=== PATIENT | female | born 1990 | race African-American/Black ===

== ENCOUNTER 2017-05-30 08:29 | Emergency (ER) | payer MEDICAID ==
[~2017-05-30] VITALS: Ht 162.6 cm; Wt 119.7 kg
[2017-05-30] MEDS ORDERED: IPRATROPIUM BROM 0.5 MG/2.5ML INH SOL NEB ONE (09:00)
[2017-05-30] MEDS ORDERED: ALBUTEROL SULF 2.5 MG/0.5ML(0.5%) NEB SOLN NEB ONE (09:00)
[2017-05-30] MEDS ORDERED: methylPREDNISolone SOD SUCC 125 MG/2 ML VL IM ONE (09:00)
[2017-05-30 09:01] VITALS: BP 120/83
[2017-05-30] MEDS ORDERED: cefTRIAXone SOD 1,000 MG VL IM ONE (10:15)
== END 2017-05-30 10:37 | disposition home or self-care (01) ==
LOC: ER 08:34
DX: J45.909 Unspecified asthma, uncomplicated (principal); J18.9 Pneumonia, unspecified organism
CPT/HCPCS: 71020; 94640; 96372; 99284; J0696; J2930

== ENCOUNTER 2024-08-21 18:01 | Emergency (ER) | payer MEDICAID ==
[~2024-08-21] VITALS: Ht 157.5 cm; Wt 141.0 kg
[~2024-08-21 18:01] MED LIST: CEPH-510 PO; CLIN-203 PO; GENT0.3S10 OP
[2024-08-21 19:27] LABS: Basophils # (auto) 0.1 10 ^3/uL (0-0.2); Eosinophils # (auto) 0.2 10 ^3/uL (0-0.8); Hemoglobin 12.4 g/dL (12.2-16.2); Lymphocytes # (auto) 3.1 10 ^3/uL (0.4-5.4); Lymphocytes % (auto) 28.1 % (10.0-50.0); Mean Corpuscular Volume 79.2 fL (80.0-100.0); Monocytes # (auto) 0.7 10 ^3/uL (0-1.3); White Blood Cell 11.1 10^3/uL (4.4-10.8)
[2024-08-21 19:29] LABS: Basophils % (auto) 0.7 % (0.0-2.0); Hematocrit 39.1 % (36.0-46.0); Mean Corpuscular Hgb Conc. 31.6 g/dL (32.0-36.0); Monocytes % (auto) 6.4 % (0.0-12.0); Neutrophils % (auto) 62.8 % (37.0-80.0); Platelet Count (auto) 465 10^3/uL (140-450); Red Blood Cells 4.94 10^6/uL (4.0-5.20); Red Cell Distribution Width 15.6 % (11.8-14.3)
[2024-08-21 19:32] LABS: Chloride 105 mmol/L (98-107); Potassium 3.8 mmol/L (3.5-5.1); Sodium 140 mmol/L (136-145)
[2024-08-21 19:33] LABS: Anion Gap 6 (5-15); Calcium 9.7 mg/dL (8.7-10.4); Carbon Dioxide 29 mmol/L (20-31)
[2024-08-21 19:38] VITALS: TEMP 98.1
[2024-08-21 19:38] LABS: BUN/Creatinine Ratio 17.6 (10.0-20.0); Blood Urea Nitrogen 12 mg/dL (9-23)
[2024-08-21 19:39] LABS: Glucose 110 mg/dL (74-106)
[2024-08-21] MEDS: ACETAMINOPHEN 325 MG TAB PO ONE (19:47)
[2024-08-21 19:48] VITALS: PULSE 70; RESP 18; O2SAT 100
[2024-08-21 21:58] LABS: Urine Bacteria None Seen /hpf (None Seen)
[2024-08-21 22:05] LABS: Urine Blood 3+ /uL (Negative); Urine Clarity Ex.Turbid (Clear); Urine Color Red (Yellow); Urine Mucus FEW (None Seen); Urine Protein, UAD 1+ (Negative); Urine Specific Gravity 1.036 (1.001-1.035); Urine Squamous Epithelial Cell FEW /hpf (<5); Urine Urobilinogen 2 mg/dL (Negative); Urine WBC 93 /HPF (0-5); Urine pH 5.5 (5.0-9.0)
[2024-08-21] MEDS ORDERED: BACDST PO (22:30)
[2024-08-21] MEDS ORDERED: ACET500T58 PO (22:30)
[2024-08-21] MEDS ORDERED: NITROFURANTOIN 100 mg CAP PO ONE (22:30)
--- NOTE | 2024-08-21 22:30 | ED.PDOC ---
History of Present Illness HPI Comments Patient is a pleasant but severely morbidly obese 34-year-old female who arrives to the ED today with complaints of elevated blood pressure concerns as well as headache that began this morning and has continued throughout the day. Patient states that she knows her blood pressure was elevated into the high 170s which in turn, resulted in a [id number] headache. At time of evaluation, patient did not look toxic and blood pressure was decreased from patient stated level. Patient denies any fever nausea or vomiting. Patient states she did have some gestational hypertension with her last delivery, but otherwise her blood pressure is unremarkable. Chief Complaint: Headache Time Seen by MD: 18:18 Primary Care Provider: NONE Reviewed Notes: Nurses Notes Allergies: Coded Allergies: NO KNOWN ALLERGIES (Unverified , 05/30/17) Home Meds Active Scripts Clindamycin HCl (Clindamycin Hydrochloride) 300 Mg Cap, 300 MG PO TID for 7 D ays, #21 CAP Prov:MELINDA JOEL MD 07/02/22 Cephalexin ( Keflex 500) 500 Mg Cap, 1 CAP PO TID for 7 Days, #21 CAP Prov:MELINDA JOEL MD 07/02/22 Gentamicin Sulfate (Gentamicin Sulfate) 0.3 % Latrice, 1 DROP OP Q4HR for 5 Days, #5 DROP Prov:MELINDA JOEL MD 07/02/22 Information Source: Patient Mode of Arrival: Ambulatory Severity: Moderate Timing: Hours Duration: Since onset Prehospital treatment: None Past Medical History PAST MEDICAL HISTORY: Asthma Surgical History: Denies all surgeries 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: Denies all SLUNK SKIN CURER Hx Family History Family History: Unknown Social History Smoker: Non-Smoker Alcohol: Denies ETOH Use Drugs: Denies Drug Use Lives In: Home Constitutional: denies: chills, diaphoresis, fatigue, fever, malaise, sweats, weakness, others EENTM: denies: blurred vision, double vision, ear bleeding, ear discharge, ear drainage, ear pain, ear ringing, eye pain, eye redness, hearing loss, mouth pain, mouth swelling, nasal discharge, nose bleeding, nose congestion, nose pain, photophobia, tearing, throat pain, throat swelling, voice changes, others Respiratory: denies: cough, hemoptysis, orthopnea, SOB at rest, shortness of breath, SOB with excertion, stridor, wheezing, others Cardiovascular: denies: chest pain, dizzy spells, diaphoresis, Dyspnea on exertion, edema, irregular heart beat, left arm pain, lightheadedness, palpitations, PND, syncope, others Gastrointestinal: denies: abdomen distended, abdominal pain, blood streaked bowels, constipated, diarrhea, dysphagia, difficulty swallowing, hematemesis, me mu, nausea, poor appetite, poor fluid intake, rectal bleeding, rectal pain, vomiting, others Genitourinary: denies: abnormal vagina bleeding, burning, dyspareunia, dysuria, flank pain, frequency, hematuria, incontinence, pain, , vagina discharge, urgency, others Neurological: reports: headache; denies: dizziness, fainting, left sided numbness, left sided weakness, numbness, paresthesia, pre-existing deficit, right sided numbness, right sided weakness, seizure, speech problems, tingling, tremors, weakness, others Musculoskeletal: denies: back pain, gout, joint pain, joint swelling, muscle pain, muscle stiffness, neck pain, others Integumetry: denies: bruises, change in color, change in hair/nails, dryness, laceration, lesions, lumps, rash, wounds, others Allergic/Immunocompromised: denies: Difficulty Healing, Frequent Infections, Hives, Itching, others Hematologic/Lymphatic: denies: anemia, blood clots, easy bleeding, easy bruising, swollen glands, others Endocrine: denies: excessive hunger, excessive sweating, excessive thirst, excessive urination, flushing, intolerance to cold, intolerance to heat, unexplained weight gain, unexplained weight loss, others Psychiatric: denies: anxiety, bipolar disorder, depression, hopeless, panic disorder, schizophrenia, sleepless, suicidal, others Physical Exam General Appearance: Moderate Distress (Distress due to headache and blood pressure concerns.), Obese HEENT: Head (Unremarkable cranial evaluation. No signs of trauma. No skull depressions or deformities.), Normal ENT Inspection, Pharynx Normal, TMs Normal Neck: Full Range of Motion, Non-Tender, Normal, Normal Inspection Respiratory: Chest Non-Tender, Lungs Clear, No Accessory Muscle Use, No Respiratory Distress, Normal Breath Sounds Cardiovascular: No Edema, No JVD, No Murmur, No Gallop, Normal Peripheral Pulses, Regular Rate/Rhythm Breast Exam: Deferred Gastrointestinal: No Organomegaly, Non Tender, No Pulsatile Mass, Normal Bowel Sounds, Soft Genitalia: Deferred Pelvic: Deferred Rectal: Deferred Extremities: No calf tenderness, Normal capillary refill, Normal inspection, Normal range of motion, Non-tender, No pedal edema Neurologic: Alert, pharmacist critical care II-XII nml as Tested, No Motor Deficits, Normal Affect, Normal Mood, No Sensory Deficits Cerebellar Function: Normal Reflexes: Normal Skin: Dry, Normal Color, Warm Lymphatic: No Adenopathy Was a procedure done? Was a procedure done?: No Differential Dx Considerations may include: Electrolyte abnormality, sepsis, acute coronary syndrome, hypertension, UTI X-Ray, Labs, Meds, VS Vital Signs Date Time Temp Pulse Resp B/P (MAP) Pulse Ox O2 Delivery O2 Flow Rate FiO2 08/21/24 19:48 70 18 100 Room Air* 0 21 21 08/21/24 19:38 98.1 79 18 154/97 (116) 100 98.1 08/21/24 18:23 98.5 98 20 166/93 (117) 96 08/21/24 18:23 Room Air 0 Lab Test 08/21/24 21:39 08/21/24 19:04 Range/Units Urine Color Red H Yellow Urine Clarity Ex.turbid Clear Urine pH 5.5 5.0-9.0 Urine Specific [place] 1.036 H 1.001-1.035 Urine Protein 1+ H Negative Urine Ketones Trace Negative Urine Blood 3+ H Negative /uL Urine Nitrite Negative Negative Urine Bilirubin Negative Negative Urine Urobilinogen 2 H Negative mg/dL Urine Leukocyte Esterase 1+ Negative /uL Urine RBC 8770 0 - 4 /hpf Urine Microscopic WBC 93 H 0-5 /HPF Urine Squamous Epithelial Cells Few <5 /hpf Urine Bacteria None seen None Seen /hpf Urine Mucus Few None Seen Urine Glucose Normal Normal mg/dL Urine Test Negative Negative White Blood Count 11.1 H 4.4-10.8 10^3/uL Red Blood Count 4.94 4.0-5.20 10^6/uL Hemoglobin 12.4 12.2-16.2 g/dL Hematocrit 39.1 36.0-46.0 % Mean Corpuscular Volume 79.2 L 80.0-100.0 fL Mean Corpuscular Hemoglobin 25.0 L 28.0-32.0 pg Mean Corpuscular Hemoglobin Concent 31.6 L 32.0-36.0 g/dL Red Cell Distribution Width 15.6 H 11.8-14.3 % Platelet Count 465 H 140-450 10^3/uL Mean Platelet Volume 7.5 6.9-10.8 fL Neutrophils (%) (Auto) 62.8 37.0-80.0 % Lymphocytes (%) (Auto) 28.1 10.0-50.0 % Monocytes (%) (Auto) 6.4 0.0-12.0 % Eosinophils (%) (Auto) 2.0 0.0-7.0 % Basophils (%) (Auto) 0.7 0.0-2.0 % Neutrophils # (Auto) 7.0 1.6-8.6 10 ^3/uL Lymphocytes # (Auto) 3.1 0.4-5.4 10 ^3/uL Monocytes # (Auto) 0.7 0-1.3 10 ^3/uL Eosinophils # (Auto) 0.2 0-0.8 10 ^3/uL Basophils # (Auto) 0.1 0-0.2 10 ^3/uL Nucleated Red Blood Cells 0.0 % Sodium Level 140 136-145 mmol/L Potassium Level 3.8 3.5-5.1 mmol/L Chloride Level 105 98-107 mmol/L Carbon Dioxide Level 29 20-31 mmol/L Anion Gap 6 5-15 Blood Urea Nitrogen 12 9-23 mg/dL Creatinine 0.68 0.550-1.02 mg/dL Glomerular Filtration Rate Calc 119 >90 mL/min BUN/Creatinine Ratio 17.6 10.0-20.0 Serum Glucose 110 H 74-106 mg/dL Calcium Level 9.7 8.7-10.4 mg/dL Troponin I High Sensitivity < 3 L </=34 ng/L Current Medications Medications (Trade) Dose Ordered Sig/Marimar Route Start Time Stop Time Status Last Admin Acetaminophen (Tylenol Tablet) 650 mg ONCE ONCE PO 08/21/24 18:45 08/21/24 18:46 DC 08/21/24 19:47 X-Ray, Labs, Meds, VS Comment All studies performed the ED were evaluated by me personally. Serum studies were unremarkable for any acute systemic process. Urinalysis confirmed a very large urinary tract infection. EKG revealed a sinus rhythm with a rate of 76, [place] interval 174 and QT interval of 394. Patient was given her 1st dose of antibiotics prior to discharge. Advised patient utilize medication as directed and to completion. If patient remains concerned about blood pressure issues, advised her to ascertain a blood pressure cuff and establish a blood pressure journal. Time of 1ST Reevaluation: 22:28 Reevaluation 1ST: Improved Consultation: PCP Patient Education/Counseling: Diagnosis, Treatment Family Education/Counseling: Diagnosis, Treatment Departure 1 Departure Time of Disposition: 22:29 Impression: Primary Impression: UTI (urinary tract infection) Disposition: HOME / SELF CARE / HOMELESS Condition: Stable Additional Instructions: Advised patient utilize antibiotics as directed until completion. If patient continues to be concerned about blood pressure issues, advised patient to ascertain a blood pressure cuff and establish a blood pressure journal to discuss with her primary care provider. e-Prescriptions Acetaminophen (Acetaminophen) 500 Mg Tab 500 MG PO Q4HP PRN, #20 TAB Prov: BRYANNA CLEVELAND PAC 08/21/24 Sulfamethoxazole W/Trimethopri (Bactrim Ds Tablet) 1 Tab Tb 1 TAB PO BID for 7 Days, #14 TAB Prov: BRYANNA CLEVELAND PAC 08/21/24 Discharged With: Self, Friend Critical Care Note Critical Care Time?: No Stability Stability form required: No Heart Score Heart Score: Heart Score Response (Comments) Value History Slightly Suspicious 0 EKG Normal 0 Age <45 0 Risk Factors No known risk factors 0 Troponin Normal limit 0 Total 0 BRYANNA CLEVELAND PAC Aug 21, 2024 22:30
[2024-08-21 22:43] VITALS: BP 137/100; PULSE 77; RESP 17; O2SAT 100
[2024-08-21] MEDS: SULFAMETHOX W/TRIMETH(800/160MG) DS TAB PO ONE (22:51)
[2024-08-21] MEDS: cefTRIAXone SOD 1,000 MG VL IM ONE (22:51)
--- NOTE | 2024-08-23 08:15 | ECG ---
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
== END 2024-08-21 23:17 | disposition home or self-care (01) ==
LOC: ER 18:01
DX: N39.0 Urinary tract infection, site not specified (principal); J45.909 Unspecified asthma, uncomplicated; E66.01 Morbid (severe) obesity due to excess calories; Z68.43 Body mass index [BMI] 50.0-59.9, adult; Z32.02 Encounter for pregnancy test, result negative; Z79.899 Other long term (current) drug therapy
CPT/HCPCS: 36415; 80048; 81001; 81025; 84484; 85025; 93005; 96372; 99285; J0696

== ENCOUNTER 2024-09-23 06:19 | Inpatient (IN) | payer MEDICAID ==
[~2024-09-23] VITALS: Ht 157.5 cm; Wt 144.6 kg
[2024-09-23] VITALS (9 sets, daily range): BP systolic 127–151; BP diastolic 79–99; PULSE 72–93; RESP 17–22; TEMP 97.5–98.7; O2SAT 95–100
[~2024-09-23 06:19] MED LIST changes: +ACET500T58 PO; +BACDST PO
--- NOTE | 2024-09-23 06:25 | ECG ---
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
--- NOTE | 2024-09-23 06:54 | ED.PDOC ---
HPI Comments 34 y/o morbidly obese F, BIBA with PMHX of asthma and bronchitis, presents to the ED for CC of chest pain. EMS states, patient is coming from home where she began to experiencing substernal non-radiating chest pain [id number]. Patient relays, that she was recently diagnosed with bronchitis on (09/21/24); believes symptoms may be in association. Patient comments on, being compliant with bronchitis Rx: Amoxicillin and Prednisone. Patient describes, pain to be tight in nature. Patient was gives given DuoNeb in route to the Ed for bilateral wheezes. Patient denies fever, headache, bilateral leg swelling, palpitations, nausea, or vomiting. No other associated symptoms, modifiers, recent injuries or sick contacts at this time. Chief Complaint: Chest Pain Time Seen by MD: 06:20 Primary Care Provider: NONE Reviewed Notes: Nurses Notes, Gear Cutter Notes, Medications, Allergies Allergies: Coded Allergies: NO KNOWN ALLERGIES (Unverified , 05/30/17) Home Meds Active Scripts Acetaminophen (Acetaminophen) 500 Mg Tab, 500 MG PO Q4HP PRN, #20 TAB Prov:BRYANNA CLEVELAND PAC 08/21/24 Sulfamethoxazole W/Trimethopri (Bactrim Ds Tablet) 1 Tab Tb, 1 TAB PO BID for 7 Days, #14 TAB Prov:BRYANNA CLEVELAND PAC 08/21/24 Clindamycin HCl (Clindamycin Hydrochloride) 300 Mg Cap, 300 MG PO TID for 7 Days, #21 CAP Prov:MELINDA JOEL MD 07/02/22 Cephalexin ( Keflex 500) 500 Mg Cap, 1 CAP PO TID for 7 Days, #21 CAP Prov:MELINDA JOEL MD 07/02/22 Gentamicin Sulfate (Gentamicin Sulfate) 0.3 % Latrice, 1 DROP OP Q4HR for 5 Days, #5 DROP Prov:MELINDA JOEL MD 07/02/22 Information Source: Patient, Emergency Med Personnel Mode of Arrival: EMS Severity: Moderate Timing: Hours Duration: Since onset Prehospital treatment: Breathing Tx Location: Substernal Radiation: No Radiation Quality: Tightness Onset: At Rest Cardiac Risk Factors: None PE Risk Factors: None History of: None Modifying Factors: Nothing Associated Signs and Symptoms: None Past Medical History PAST MEDICAL HISTORY: Asthma Surgical History: Denies all surgeries LAG SCREWER History: Denies all LAG SCREWER Hx Family History Family History: Unknown Social History Smoker: Non-Smoker Alcohol: Denies ETOH Use Drugs: Denies Drug Use Lives In: Home Constitutional: denies: chills, diaphoresis, fatigue, fever, malaise, sweats, weakness, others EENTM: denies: blurred vision, double vision, ear bleeding, ear discharge, ear drainage, ear pain, ear ringing, eye pain, eye redness, hearing loss, mouth pain, mouth swelling, nasal discharge, nose bleeding, nose congestion, nose pain, photophobia, tearing, throat pain, throat swelling, voice changes, others Respiratory: denies: cough, hemoptysis, orthopnea, SOB at rest, shortness of breath, SOB with excertion, stridor, wheezing, others Cardiovascular: reports: chest pain; denies: dizzy spells, diaphoresis, Dyspnea on exertion, edema, irregular heart beat, left arm pain, lightheadedness, palpitations, PND, syncope, others Gastrointestinal: denies: abdomen distended, abdominal pain, blood streaked bowels, constipated, diarrhea, dysphagia, difficulty swallowing, hematemesis, melena, nausea, poor appetite, poor fluid intake, rectal bleeding, rectal pain, vomiting, others Genitourinary: denies: abnormal vagina bleeding, burning, dyspareunia, dysuria, flank pain, frequency, hematuria, incontinence, pain, , vagina discharge, urgency, others Neurological: reports: headache; denies: dizziness, fainting, left sided numbness, left sided weakness, numbness, paresthesia, pre-existing deficit, right sided numbness, right sided weakness, seizure, speech problems, tingling, tremors, weakness, others Musculoskeletal: denies: back pain, gout, joint pain, joint swelling, muscle pain, muscle stiffness, neck pain, others Integumetry: denies: bruises, change in color, change in hair/nails, dryness, laceration, lesions, lumps, rash, wounds, others Allergic/Immunocompromised: denies: Difficulty Healing, Frequent Infections, Hives, Itching, others Hematologic/Lymphatic: denies: anemia, blood clots, easy bleeding, easy bruising, swollen glands, others Endocrine: denies: excessive hunger, excessive sweating, excessive thirst, excessive urination, flushing, intolerance to cold, intolerance to heat, unexplained weight gain, unexplained weight loss, others Psychiatric: denies: anxiety, bipolar disorder, depression, hopeless, panic disorder, schizophrenia, sleepless, suicidal, others All Other Systems: Reviewed and Negative Physical Exam General Appearance: Moderate Distress HEENT: Normal ENT Inspection, Pharynx Normal, TMs Normal Neck: Full Range of Motion, Non-Tender, Normal, Normal Inspection Respiratory: Wheezing Cardiovascular: No Edema, No JVD, No Murmur, No Gallop, Normal Peripheral Pulses, Regular Rate/Rhythm Breast Exam: Deferred Gastrointestinal: No Organomegaly, Non Tender, No Pulsatile Mass, Normal Bowel Sounds, Soft Genitalia: Deferred Pelvic: Deferred Rectal: Deferred Extremities: No calf tenderness, Normal capillary refill, Normal inspection, Normal range of motion, Non-tender, No pedal edema Musculoskeletal : Apperance: Normal Neurologic: Alert, order runner II-XII nml as Tested, No Motor Deficits, Normal Affect, Normal Mood, No Sensory Deficits Cerebellar Function: NOT DONE Reflexes: NOT DONE Skin: Dry, Normal Color, Warm Peripheral Pulses: 3+ Radial (R), 3+ Radial (L) Lymphatic: No Adenopathy Was a procedure done? Was a procedure done?: No CP Differential Dx Differential Diagnosis: A-fib, A-Flutter, Angina, Anxiety / Panic Attack, Atrial Dysrhythmia, Electrolyte Disorder Differential Diagnosis: Chest Wall Pain, Costochondritis, Pneumonia X-Ray, Labs, Meds, VS Vital Signs Date Time Temp Pulse Resp B/P (MAP) Pulse Ox O2 Delivery O2 Flow Rate FiO2 09/23/24 07:30 85 18 98 Room Air* 0 21 09/23/24 07:30 97.8 82 18 131/78 (95) 99 97.8 09/23/24 07:21 22 93 Room Air* 0 21 09/23/24 06:22 97.6 73 18 162/107 (125) 94 97.6 09/23/24 06:19 75 Lab Test 09/23/24 07:30 Range/Units Troponin I High Sensitivity 3 L </=34 ng/L Current Medications Medications (Trade) Dose Ordered Sig/Marimar Route Start Time Stop Time Status Last Admin Albuterol (Ventolin Medneb) 5 mg ONCE ONCE NEB 09/23/24 07:00 09/23/24 07:01 DC 09/23/24 07:20 Ipratropium [place] (Atrovent Medneb) 0.5 mg ONCE ONCE NEB 09/23/24 07:00 09/23/24 07:01 DC 09/23/24 07:[address] [address] Ph: [phone] DIAGNOSTIC IMAGING Diagnostic Imaging Report : [id number] Signed PATIENT: TREVON GUO ACCT: [id number] UNIT: [id number] : 1990 LOC: ER ROOM / BED: / AGE / SEX: 34 / F ADM STATUS: REG ER SERVICE 4 ORDERING PHYSICIAN: MELINDA JOEL MD PROCEDURE(s): CXRP - CHEST PORTABLE REASON: sob ORDER NUMBER(s): [id number], ACCESSION NUMBER(s): [id number] INDICATION: sob TECHNIQUE: Frontal view of the chest. COMPARISON: None FINDINGS: . Cardiomegaly. There is no evidence of pleural disease. The lungs are clear. The bony structures of the chest are intact without fracture. IMPRESSION: 1. Cardiomegaly with CHF. ATED BY: LEO GOLDEN MD DICTATED DATE/TIME: 09/23/24741 SIGNED BY: LEO GOLDEN MD SIGNED DATE/TIME: 09/23/24741 CC: Patient alert. Complaining of chest pain shortness a breath. Has been taking antibiotics for bronchitis. Blood pressure slightly elevated. She is obese. Continues to have chest pain. Was given aspirin. Was given morphine. Was given nitro. Explained to the patient. Continue cardiac monitoring. Time of 1ST Reevaluation: 06:50 Reevaluation 1ST: Unchanged Patient Education/Counseling: Diagnosis, Treatment Family Education/Counseling: No Family Present Departure 1 Departure Time of Disposition: 06:59 Impression: Primary Impression: Chest pain of unknown etiology Additional Impressions: Asthma exacerbation Qualified Codes: J45.41 - Moderate persistent asthma with (acute) exacerbation HTN (hypertension) Qualified Codes: I10 - Essential (primary) hypertension Disposition: ADMITTED INPATIENT Admit to: Med Surg Condition: Guarded Critical Care Note Critical Care Time?: Yes (45 min-critical care time only) Critical care comment: Started steroid monitor oxygen saturation Stability Stability form required: No Heart Score Heart Score: Heart Score Response (Comments) Value History Slightly Suspicious 0 EKG Normal 0 Age <45 0 Risk Factors 1 or 2 risk factors 1 Troponin Normal limit 0 Total 1 I personally scribed for MELINDA JOEL MD ([email or web address]) on 09/23/24 at 06:54. Electronically submitted by Belen Story ([email or web address]). I personally scribed for MELINDA JOEL MD ([email or web address]) on 09/23/24 at 08:13. Electronically submitted by Belen Story ([email or web address]). MELINDA JOEL MD Sep 23, 2024 06:54
[2024-09-23] MEDS: methylPREDNISolone SOD SUCC 125 MG/2 ML VL IV ONE (07:00)
[2024-09-23] MEDS: ALBUTEROL SULF 2.5 MG/0.5ML(0.5%) NEB SOLN NEB ONE (07:20)
[2024-09-23] MEDS: IPRATROPIUM BROM 0.5 MG/2.5ML INH SOL NEB ONE (07:20)
--- NOTE | 2024-09-23 07:45 | DVH ---
INDICATION: sob TECHNIQUE: Frontal view of the chest. COMPARISON: None FINDINGS: . Cardiomegaly. There is no evidence of pleural disease. The lungs are clear. The bony structures of the chest are intact without fracture. IMPRESSION: 1. Cardiomegaly with CHF.
[2024-09-23] MEDS ORDERED: MORPHINE SULFATE INJ 2 MG/ml SYRG IV PRN ×2 (09:15)
[2024-09-23] MEDS ORDERED: ALBUTEROL SULF 2.5 MG/0.5ML(0.5%) NEB SOLN NEB PRN (09:15)
[2024-09-23] MEDS ORDERED: NITROGLYCERIN 0.4 MG SL TAB SL PRN (09:15)
[2024-09-23] MEDS ORDERED: IPRATROPIUM BROM 0.5 MG/2.5ML INH SOL NEB PRN (09:15)
[2024-09-23] MEDS ORDERED: ONDANSETRON HCL 4 MG/2 ML VIAL IV PRN (09:15)
[2024-09-23 09:29] LABS: Basophils # (auto) 0.1 10 ^3/uL (0-0.2); Eosinophils # (auto) 0.1 10 ^3/uL (0-0.8); Hemoglobin 12.3 g/dL (12.2-16.2); Mean Corpuscular Volume 79.7 fL (80.0-100.0)
[2024-09-23 09:32] LABS: Basophils % (auto) 0.4 % (0.0-2.0); Eosinophils % (auto) 0.7 % (0.0-7.0); Hematocrit 38.5 % (36.0-46.0); Lymphocytes # (auto) 5.3 10 ^3/uL (0.4-5.4); Lymphocytes % (auto) 38.7 % (10.0-50.0); Mean Corpuscular Hemoglobin 25.5 pg (28.0-32.0); Monocytes # (auto) 0.9 10 ^3/uL (0-1.3); Monocytes % (auto) 6.5 % (0.0-12.0); Neutrophils # (auto) 7.3 10 ^3/uL (1.6-8.6); Neutrophils % (auto) 53.7 % (37.0-80.0); Nucleated Red Blood Cells % 0.3 %; Platelet Count (auto) 478 10^3/uL (140-450); Red Blood Cells 4.83 10^6/uL (4.0-5.20); Red Cell Distribution Width 15.6 % (11.8-14.3); White Blood Cell 13.6 10^3/uL (4.4-10.8)
[2024-09-23 09:40] LABS: Alanine Aminotransferase 18 U/L (7-40); Albumin 4.4 g/dL (3.2-4.8); Alkaline Phosphatase 88 U/L (46-116); Anion Gap 7 (5-15); BUN/Creatinine Ratio 18.1 (10.0-20.0); Blood Urea Nitrogen 15 mg/dL (9-23); Calcium 9.4 mg/dL (8.7-10.4); Carbon Dioxide 25 mmol/L (20-31); Chloride 106 mmol/L (98-107); Magnesium 1.9 mg/dL (1.6-2.6); Potassium 3.9 mmol/L (3.5-5.1); Sodium 138 mmol/L (136-145); Total Protein 7.7 g/dL (5.7-8.2)
[2024-09-23 09:42] LABS: Aspartate Aminotransferase 9 U/L (13-40); Bilirubin, Total 0.3 mg/dL (0.2-1.0); Glucose 112 mg/dL (74-106)
[2024-09-23 10:03] LABS: LDL Cholesterol 90 mg/dL (< 100); Triglycerides 115 mg/dL (< 150)
[2024-09-23 10:05] LABS: Cholesterol 150 mg/dL (< 200); HDL Cholesterol 47 mg/dL (40-59)
--- NOTE | 2024-09-23 10:12 | DVHHP2 ---
History of Present Illness Reason for Visit: Chest pain History of Present Illness Leanne Mccoy is a 34-year-old female with past medical history of asthma, bronchitis, morbid obesity, and who presents to the ED for chest pain substernal nonradiating and tight intermittent nature x5 days. Patient reports that she was at the urgent care for an ear infection in which she was given a breathing treatment 2 steroid injections and amoxicillin to take. Patient states that they also did not x-ray and was diagnosed with bronchitis. Patient also reported that she had a headache at the urgent care. Patient states that she took some of the amoxicillin but unsure how many pills she has left. Patient also reports that she has been having productive yellow phlegm. Patient denies any abdominal pain, nausea, vomiting, fever, chills, lightheadedness, weakness, dizziness, nausea, vomiting, or diarrhea. Pulmonary: Asthma, Bronchitis Past Medical History Morbid obesity Past Surgical History: Family History: Other (Dad with lupus and mom with renal failure) Smoke: No ALCOHOL: occassional Drugs: None Lives: with Family Domestic Violence: Neg Review of Systems Constitutional: Yes: Other (Headache) Respiratory: Sputum Cardiovascular: Chest Pain Allergies: Coded Allergies: NO KNOWN ALLERGIES (Unverified , 05/30/17) Exam Vital Signs Vital Signs Date Time Temp Pulse Resp B/P (MAP) Pulse Ox O2 Delivery O2 Flow Rate FiO2 09/23/24 08:00 72 18 151/99 (116) 100 09/23/24 07:30 Room Air* 0 21 09/23/24 07:30 97.8 97.8 General Appearance: Alert, Oriented X3, Cooperative, No acute distress HEENT: Atraumatic, PERRLA, EOMI, Mucous membr. moist/pink Respiratory: Clear to auscultation, Normal air movement Cardiovascular: Regular rate, Normal S1, Normal S2, No murmurs Abdominal: Normal bowel sounds, Soft, No tenderness Extremities: No cyanosis, Normal pulses Skin: No significant lesion Neuro: Normal speech, Strength at 5/5 X4 ext, Normal tone, Sensation intact Psych/Mental Status: Mental status NL, Mood NL Labs/Xrays Labs Test 09/23/24 08:35 09/23/24 07:30 Range/Units Troponin I High Sensitivity 3 L </=34 ng/L White Blood Count 13.6 H 4.4-10.8 10^3/uL Red Blood Count 4.83 4.0-5.20 10^6/uL Hemoglobin 12.3 12.2-16.2 g/dL Hematocrit 38.5 36.0-46.0 % Mean Corpuscular Volume 79.7 L 80.0-100.0 fL Mean Corpuscular Hemoglobin 25.5 L 28.0-32.0 pg Mean Corpuscular Hemoglobin Concent 32.0 32.0-36.0 g/dL Red Cell Distribution Width 15.6 H 11.8-14.3 % Platelet Count 478 H 140-450 10^3/uL Mean Platelet Volume 8.4 6.9-10.8 fL Neutrophils (%) (Auto) 53.7 37.0-80.0 % Lymphocytes (%) (Auto) 38.7 10.0-50.0 % Monocytes (%) (Auto) 6.5 0.0-12.0 % Eosinophils (%) (Auto) 0.7 0.0-7.0 % Basophils (%) (Auto) 0.4 0.0-2.0 % Neutrophils # (Auto) 7.3 1.6-8.6 10 ^3/uL Lymphocytes # (Auto) 5.3 0.4-5.4 10 ^3/uL Monocytes # (Auto) 0.9 0-1.3 10 ^3/uL Eosinophils # (Auto) 0.1 0-0.8 10 ^3/uL Basophils # (Auto) 0.1 0-0.2 10 ^3/uL Nucleated Red Blood Cells 0.3 % Sodium Level 138 136-145 mmol/L Potassium Level 3.9 3.5-5.1 mmol/L Chloride Level 106 98-107 mmol/L Carbon Dioxide Level 25 20-31 mmol/L Anion Gap 7 5-15 Blood Urea Nitrogen 15 9-23 mg/dL Creatinine 0.83 0.550-1.02 mg/dL Glomerular Filtration Rate Calc 96 >90 mL/min BUN/Creatinine Ratio 18.1 10.0-20.0 Serum Glucose 112 H 74-106 mg/dL Calcium Level 9.4 8.7-10.4 mg/dL Phosphorus Level 3.0 2.4-5.1 mg/dL Magnesium Level 1.9 1.6-2.6 mg/dL Total Bilirubin 0.3 0.2-1.0 mg/dL Aspartate Amino Transferase (AST) 9 L 13-40 U/L Alanine Aminotransferase (ALT) 18 7-40 U/L Alkaline Phosphatase 88 46-116 U/L Total Protein 7.7 5.7-8.2 g/dL Albumin 4.4 3.2-4.8 g/dL INDICATION: sob TECHNIQUE: Frontal view of the chest. COMPARISON: None FINDINGS: . Cardiomegaly. There is no evidence of pleural disease. The lungs are clear. The bony structures of the chest are intact without fracture. IMPRESSION: 1. Cardiomegaly with CHF. Assessment/Plan Assessment/Plan Assessment Chest pain Leukocytosis probable pneumonia Bronchitis Acute asthma exacerbation Acute respiratory failure Morbid obesity Cardiomegaly ? 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 Procedure Category Date Status Time B-Type Natriuretic LAB 09/23/24 In Process Peptide 09:11 Admit ADMIT 09/23/24 Verified 09:12 Allergies BETO 09/23/24 Verified 09:12 Code Status CODE 09/23/24 Verified 09:12 Hydrocodone-Acet PHA 09/23/24 Verified 5/325mg Tab ([place] 09:15 Ondansetron Hcl PHA 09/23/24 Verified (Zofran) 09:15 Complete Blood Count LAB 09/24/24 Verified 04:00 Comprehensive LAB 09/24/24 Verified Metabolic Panel 04:00 Cardiac DIET 09/23/24 Verified Diet-2gna,Lofat,Lochol Breakfast Echo 2d Mode Cardiac US 09/23/24 Verified DOP 09:12 Acetaminophen Tablet PHA 09/23/24 Verified (Tylenol Tablet) 09:15 Morphine Sulfate PHA 09/23/24 Verified Injection 09:15 Sequential BETO 09/23/24 Verified Compression Device Nitroglycerin PHA 09/23/24 Verified Sublingual (Ntrostat 09:15 Morphine Sulfate PHA 09/23/24 Verified Injection 09:15 Stat Ekg For Chest BETO 09/23/24 Verified Pain 09:12 Notify Md Of Changes [facility] 09/23/24 Verified From Base 09:12 Physician Compensation Analyst For [facility] 09/23/24 Verified 24 Hours 09:[address] [facility] 09/23/24 Verified Protocol 09:12 Rhythm Strips Once [facility] 09/23/24 Verified Every Shift 09:12 Oxygen By Nasal RT 09/23/24 Verified Cannula 09:12 Date of Service: Sep 23, 2024 Billing Provider: BARBIE PATEL Common Visit Codes: [id number] INP/OBS CARE (HIGH) BARBIE PATEL Sep 23, 2024 10:12
[2024-09-23] MEDS: cefTRIAXone 1GM/50ML D5W 50 ML IV ONE (10:33)
[2024-09-23 10:51] LABS: COVID19 ANTIGEN SOFIA FIA NEGATIVE (NEGATIVE); Rapid Influenza A Negative (Negative); Rapid Influenza B Negative (Negative)
[2024-09-23] MEDS: IPRATROPIUM BROM 0.5 MG/2.5ML INH SOL NEB SCH (11:37)
[2024-09-23] MEDS: ALBUTEROL SULF 2.5 MG/0.5ML(0.5%) NEB SOLN NEB SCH (11:37)
[2024-09-23] MEDS ORDERED: FLUT50SP NAS (14:37)
[2024-09-23] MEDS: HYDROcodone-ACET 5/325MG TAB PO PRN (14:44)
[2024-09-23] MEDS: ACETAMINOPHEN 325 MG TAB PO PRN (16:32)
--- NOTE | 2024-09-23 18:11 | DVHINCON2 ---
Date Seen: Sep 23, 2024 Referring Physician MARYAN Abrams Reason for Consultation New onset CHF History of Present Illness This is a pleasant 34-year-old female who presented to the emergency room via EMS with a chief complaint of chest pain. She received a breathing treatment en route to the hospital. Describes the chest pain as substernal, nonradiating, tightness like, associated with a cough with yellow sputum/LOPEZ, and worse with movement/inspiration/cough. States she attended our urgent care clinic this past Friday where she received a steroid and breathing treatment and sent home on ABX and albuterol therapy. She returned again two days ago given worsening symptoms, this time she underwent a CXR where she was diagnosed with acute bronchitis. A 12 lead electrocardiogram revealed a normal sinus rhythm. Serial troponin levels are negative. Significant medical history includes bronchitis, pneumonia, asthma, childhood group, preeclampsia, gestational diabetes, and morbid obesity. Past Medical History Past medical history reviewed. No other significant than mentioned above. Past Surgical History Tonsillectomy Adenoidectomy Tympanostomy tubes Family History: Cardiac disorder G8 MOTHER FH: kidney failure G8 MOTHER FH: lung cancer G8 FATHER FH: lupus G8 FATHER FH: obesity G8 MOTHER Family History Family history reviewed. Significant for mother with PPM at 16 y.o. Social History Denies the use of illicit drugs or tobacco use. Admits to rarely alcohol use. Allergies: Coded Allergies: NO KNOWN ALLERGIES (Unverified , 05/30/17) Home Meds Active Scripts Acetaminophen (Acetaminophen) 500 Mg Tab, 500 MG PO Q4HP PRN, #20 TAB Prov:BRYANNA CLEVELAND PAC 08/21/24 Sulfamethoxazole W/Trimethopri (Bactrim Ds Tablet) 1 Tab Tb, 1 TAB PO BID for 7 Days, #14 TAB Prov:BRYANNA CLEVELAND PAC 08/21/24 Clindamycin HCl (Clindamycin Hydrochloride) 300 Mg Cap, 300 MG PO TID for 7 Days, #21 CAP Prov:MELINDA JOEL MD 07/02/22 Cephalexin ( Keflex 500) 500 Mg Cap, 1 CAP PO TID for 7 Days, #21 CAP Prov:MELINDA JOEL MD 07/02/22 Gentamicin Sulfate (Gentamicin Sulfate) 0.3 % Latrice, 1 DROP OP Q4HR for 5 Days, #5 DROP Prov:MELINDA JOEL MD 07/02/22 Reported Medications Fluticasone Propionate (Nasal) (Fluticasone Propionate) 50 Mcg/Act Spr, 1-2 LORETA DAILYPRN PRN 09/23/24 Home Meds Home medications reviewed. Current Medications Current Medications Medications (Trade) Dose Ordered Sig/[place]imar Route PRN Reason Start Time Stop Time Status Last Admin Acetaminophen/ Hydrocodone Bitart ([place] 5/325MG Tab) 1 tab Q4HP PRN PO MODERATE PAIN (4-6 PAIN SCALE) 09/23/24 09:15 09/23/24 14:44 Ondansetron HCl (Zofran) 4 mg Q4HP PRN IV NAUSEA / VOMITING 09/23/24 09:15 Acetaminophen (Tylenol Tablet) 650 mg Q6HP PRN PO PAIN SCALE 1-3 OR TEMP>100.4 09/23/24 09:15 09/23/24 16:32 Morphine Sulfate 2 mg Q4HPRN PRN IV SEVERE PAIN (7-10 PAIN SCALE) 09/23/24 09:15 Nitroglycerin (Ntrostat Sublingual) 0.4 mg Q5MINP PRN SL FOR CHEST PAIN 09/23/24 09:15 Morphine Sulfate 2 mg Q30M PRN IV FOR CHEST PAIN 09/23/24 09:15 Ceftriaxone Sodium 50 ml @ 100 mls/hr DAILY@09 IV 09/24/24 09:00 Albuterol (Ventolin Medneb) 2.5 mg Q6HWA NEB 09/23/24 12:00 09/23/24 11:37 Albuterol (Ventolin Medneb) 2.5 mg Q2HPRN PRN NEB SHORTNESS OF BREATH 09/23/24 09:15 Ipratropium [place] (Atrovent Medneb) 0.5 mg Q6HWA NEB 09/23/24 12:00 09/23/24 11:37 Ipratropium [place] (Atrovent Medneb) 0.5 mg Q2HPRN PRN NEB SHORTNESS OF BREATH 09/23/24 09:15 Review of Systems Constitutional: No symptom reported Ears, Nose, & Throat: No symptom reported Eyes: No symptom reported Neurological: LOPEZ Pulmonary/Respiratory: No symptom reported Cardiovascular: No symptom reported Gastrointestinal: No symptom reported Genitourinary: No symptom reported Musculoskeletal: Pleuritic chest pain Skin: No symptom reported Psychiatric: No symptom reported Endocrine: No symptom reported Hemotologic/Lymphatic: No symptom reported Vital Signs Vital Signs Date Time Temp Pulse Resp B/P (MAP) Pulse Ox O2 Delivery O2 Flow Rate FiO2 09/23/24 17:00 98.7 88 19 145/86 (105) 100 98.7 09/23/24 14:39 Room Air* 0 21 Physical Exam General Appearance: Cooperative. Well developed. Morbidly obese. Mild acute distress Head Exam: Normal inspection Neck Exam: Normal inspection. Non-tender. Normal alignment Pulmonary/Respiratory: Chest non-tender. Coarse bilateral breath sounds Cardiovascular/Chest: Regular rate and rhythm. S1, S2. NSR. No murmurs. No JVD. Peripheral Pulses: 2+ Radial (R). 2+ Radial (L). 2+ Pedal (R). 2+ Pedal (L) Abdominal Exam: Normal bowel sounds. Soft. Nontender. No hepatospenomegaly. No masses Ankle Exam: Negative ankle edema Lower extremities: Negative lower extremity edema Neuro/Mental Status: A&O x4. Coherent Thoughts/Psych: Normal thought pattern. Appropriate mood and affect. Good judgement and insight Appearance: Mild acute distress Skin Exam: Normal inspection. Normal color. Warm. Dry Labs/Diagnostic Data Labs Test 09/23/24 10:20 09/23/24 10:19 09/23/24 07:30 Range/Units Troponin I High Sensitivity < 3 L </=34 ng/L Influenza Type A Antigen Negative Negative Influenza Type B Antigen Negative Negative SARS-CoV-2 Antigen (Rapid) Negative NEGATIVE White Blood Count 13.6 H 4.4-10.8 10^3/uL Red Blood Count 4.83 4.0-5.20 10^6/uL Hemoglobin 12.3 12.2-16.2 g/dL Hematocrit 38.5 36.0-46.0 % Mean Corpuscular Volume 79.7 L 80.0-100.0 fL Mean Corpuscular Hemoglobin 25.5 L 28.0-32.0 pg Mean Corpuscular Hemoglobin Concent 32.0 32.0-36.0 g/dL Red Cell Distribution Width 15.6 H 11.8-14.3 % Platelet Count 478 H 140-450 10^3/uL Mean Platelet Volume 8.4 6.9-10.8 fL Neutrophils (%) (Auto) 53.7 37.0-80.0 % Lymphocytes (%) (Auto) 38.7 10.0-50.0 % Monocytes (%) (Auto) 6.5 0.0-12.0 % Eosinophils (%) (Auto) 0.7 0.0-7.0 % Basophils (%) (Auto) 0.4 0.0-2.0 % Neutrophils # (Auto) 7.3 1.6-8.6 10 ^3/uL Lymphocytes # (Auto) 5.3 0.4-5.4 10 ^3/uL Monocytes # (Auto) 0.9 0-1.3 10 ^3/uL Eosinophils # (Auto) 0.1 0-0.8 10 ^3/uL Basophils # (Auto) 0.1 0-0.2 10 ^3/uL Nucleated Red Blood Cells 0.3 % Sodium Level 138 136-145 mmol/L Potassium Level 3.9 3.5-5.1 mmol/L Chloride Level 106 98-107 mmol/L Carbon Dioxide Level 25 20-31 mmol/L Anion Gap 7 5-15 Blood Urea Nitrogen 15 9-23 mg/dL Creatinine 0.83 0.550-1.02 mg/dL Glomerular Filtration Rate Calc 96 >90 mL/min BUN/Creatinine Ratio 18.1 10.0-20.0 Serum Glucose 112 H 74-106 mg/dL Calcium Level 9.4 8.7-10.4 mg/dL Phosphorus Level 3.0 2.4-5.1 mg/dL Magnesium Level 1.9 1.6-2.6 mg/dL Total Bilirubin 0.3 0.2-1.0 mg/dL Aspartate Amino Transferase (AST) 9 L 13-40 U/L Alanine Aminotransferase (ALT) 18 7-40 U/L Alkaline Phosphatase 88 46-116 U/L B-Type Natriuretic Peptide 9.54 0-100 pg/mL Total Protein 7.7 5.7-8.2 g/dL Albumin 4.4 3.2-4.8 g/dL Triglycerides Level 115 < 150 mg/dL Cholesterol Level 150 < 200 mg/dL LDL Cholesterol 90 < 100 mg/dL HDL Cholesterol 47 40-59 mg/dL Thyroid Stimulating Hormone (TSH) 3.94 0.55-4.78 uIU/mL Assessment Acute bronchitis/PNA Noncardiac chest pain, pleuritic in nature Extensive hx of airway disease Rule out structural heart disease Morbid obesity Plan/Recommendation (Dr. Rivas) The patient presents with noncardiac/pleuritic chest pain secondary to acute bronchitis. We will continue further cardiac evaluation with a transthoracic echocardiogram to rule out structural heart disease. In the meantime, continue ABX therapy and breathing treatments per hospitalist. Doubt any cardiac etiologies to be addressed. In the setting of an unremarkable echocardiogram, there is no further cardiac work-up indicated at this time. Thank you for allowing us to participate in this patient's care. Please call if you have any questions or concerns. This medical document was created using an electronic medical record system with voice recognition software and computerized dictation system. Although this document has been carefully reviewed, there might still be some phonetic and typographical errors. Occasional wrong-word or ``sound-alike substitutions may have occurred due to the inherent limitations of voice recognition software. These areas are purely typographical due to imperfections of the software programs and do not reflect any compromise in the patient's medical care. Please read the chart carefully and recognize, using context, where these substitutions have occurred. Plan discussed with: Patient, Other NYHA Physical activity limitations: NA Date of Service: Sep 23, 2024 Billing Provider: TIERRA ALANIS Cardiology Common Codes: [id number] INP/OBS CARE (High) TIERRA ALANIS Sep 23, 2024 18:11
--- NOTE | 2024-09-23 18:11 | DVHSR ---
APPROVED REPORT EXAM: Two-dimensional and M-mode echocardiogram with Doppler and color Doppler. Blood Pressure: 151/99 mmHg INDICATION Chest Pain RISK FACTORS Obesity: Height: 5' 2", Weight: 315 DIMENSIONS LVDd4.5 (3.8-5.7cm)LA (2D)3.9 (1.9-4.0cm)Aortic Root2.7 (2.0-3.7cm) LVDs3.0 (2.5-4.0cm)LA (MM) (1.9-4.0cm)Aortic Cusp Exc1.6 (1.5-2.0cm) EF (%) 62.0 (55-70%)Rt. Atrium3.6 (1.9-4.0cm)Asc. Aorta cm IVSd1.1 (0.7-1.1cm)RV (D) (1.8-2.4cm) PWd1.1 (0.7-1.1cm) Mitral Valve MitralMitral Stenosis E wave1.20m/sMV Mean GR.mmHg A wave0.70m/sMV Peak GR.mmHg E/A ratio1.72D MVAcm2 Aortic Valve Aortic ValveAortic Stenosis V10.80m/Min Mean GR.7mmHg V21.70m/Min Peak GR.12mmHg LVOT Diameter2.0 (1.8-2.4cm)Doppler AVA1.48cm2 Pulmonic Valve V20.80m/s Conclusion Technically good study. Sinus rhythm. Normal chamber sizes. Valves are normal. EF of 55% with normal RV function. Unremarkable Doppler. No pericardial effusion masses or
[2024-09-23 18:16] LABS: Urine Bacteria None Seen /hpf (None Seen)
--- NOTE | 2024-09-23 18:34 | ECG ---
[facility] Test Date: 2024-09-23 Test Time: 07:21:32 Pat Name: TREVON GUO Department: ER Room: 0234 Gender: F Fern Picker: : 1990 Requested By: MELINDA JOEL Order Number: [id number] Reading MD: Isaias Rivas Measurements Intervals [place] Rate: 71 P: 44 ID: [id number] QRS: 20 QRSD: 100 T: 33 QT: 395 QTc: 430 Interpretive Statements Sinus rhythm Electronically Signed On 09-25-2024 17:32:42 PDT by Isaias Rivas Please click the below link to view image of tracing.
--- NOTE | 2024-09-23 18:34 | ECG ---
[facility] Test Date: 2024-09-23 Test Time: 12:34:10 Pat Name: TREVON GUO Department: ER Room: 0234 Gender: F Button Bradder: : 1990 Requested By: MELINDA JOEL Order Number: [id number] Reading MD: Isaias Rivas Measurements Intervals [place] Rate: 84 P: 37 HI: 158 QRS: 22 QRSD: 90 T: 28 QT: 379 QTc: 449 Interpretive Statements Sinus rhythm Electronically Signed On 09-25-2024 17:34:23 PDT by Isaias Rivas Please click the below link to view image of tracing.
[2024-09-23 18:42] LABS: Cannabinoid Screen, Urine Neg (NEGATIVE); Opiate Scree,Urine Neg (NEGATIVE)
[2024-09-23 19:05] LABS: Urine Blood Negative /uL (Negative); Urine Budding Yeast OCCASIONAL /hpf (None Seen); Urine Clarity Clear (Clear); Urine Color Light-Yellow (Yellow); Urine Protein, UAD Negative (Negative); Urine Specific Gravity 1.018 (1.001-1.035); Urine Squamous Epithelial Cell FEW /hpf (<5); Urine Urobilinogen Normal (Negative); Urine WBC < 1 /HPF (0-5)
[2024-09-23 19:08] LABS: Amphetamine Screen, Urine Neg (NEGATIVE); Barbiturate Scree,Urine Neg (NEGATIVE); Benzodiazephine Screen, Urine Neg (NEGATIVE); Cocaine Screen, Urine Neg (NEGATIVE); Phencyclidine Screen, Urine Neg (NEGATIVE)
[2024-09-24] VITALS (16 sets, daily range): BP systolic 112–129; BP diastolic 63–84; PULSE 71–98; RESP 17–20; TEMP 97.6–98.5; O2SAT 96–100
[2024-09-24 05:16] LABS: Basophils # (auto) 0.1 10 ^3/uL (0-0.2); Eosinophils # (auto) 0 10 ^3/uL (0-0.8)
[2024-09-24 05:19] LABS: Basophils % (auto) 0.3 % (0.0-2.0); Hematocrit 36.3 % (36.0-46.0); Lymphocytes # (auto) 2.4 10 ^3/uL (0.4-5.4); Lymphocytes % (auto) 14.6 % (10.0-50.0); Mean Corpuscular Hemoglobin 26.3 pg (28.0-32.0); Mean Corpuscular Hgb Conc. 33.1 g/dL (32.0-36.0); Mean Corpuscular Volume 79.4 fL (80.0-100.0); Monocytes # (auto) 0.9 10 ^3/uL (0-1.3); Monocytes % (auto) 5.5 % (0.0-12.0); Neutrophils % (auto) 79.6 % (37.0-80.0); Platelet Count (auto) 523 10^3/uL (140-450); Red Blood Cells 4.57 10^6/uL (4.0-5.20); Red Cell Distribution Width 15.8 % (11.8-14.3); White Blood Cell 16.4 10^3/uL (4.4-10.8)
[2024-09-24 05:35] LABS: Alanine Aminotransferase 15 U/L (7-40); Alkaline Phosphatase 87 U/L (46-116); Anion Gap 7 (5-15); BUN/Creatinine Ratio 17.8 (10.0-20.0); Blood Urea Nitrogen 13 mg/dL (9-23); Calcium 9.3 mg/dL (8.7-10.4); Carbon Dioxide 25 mmol/L (20-31); Chloride 105 mmol/L (98-107); Potassium 4.9 mmol/L (3.5-5.1); Sodium 137 mmol/L (136-145); Total Protein 7.3 g/dL (5.7-8.2)
[2024-09-24 05:36] LABS: Albumin 4.2 g/dL (3.2-4.8); Aspartate Aminotransferase 17 U/L (13-40); Bilirubin, Total 0.2 mg/dL (0.2-1.0); Glucose 161 mg/dL (74-106)
[2024-09-24] MEDS: cefTRIAXone 1GM/50ML D5W 50 ML IV SCH (08:44)
[2024-09-24 10:40] LABS: INR 1.07 (0.9-1.15); Partial Thromboplastin Time 26.2 SEC (24.5-34.5); Prothrombin Time 11.3 sec (9.3-11.8)
--- NOTE | 2024-09-24 14:38 | DVHPNRES ---
Progress Note Date Seen: Sep 24, 2024 Resident Creating Document: NIRU BRASWELL RESIDENT Medical Necessity Reason Pt with a Central, PICC or Fol: No Subjective Review of Systems Leanne Mccoy is a 34-year-old female who presented to the emergency room via EMS with a chief complaint of chest pain. She received a breathing treatment en route to the hospital. Describes the chest pain as substernal, nonradiating, tightness like, associated with a cough with yellow sputum/LOPEZ, and worse with movement/inspiration/cough. States she attended our urgent care clinic this past Friday where she received a steroid and breathing treatment and sent home on ABX and albuterol therapy. She returned again two days ago given worsening symptoms. On my assessment patient denies fever, nausea, vomiting, difficulty breathing, sick contacts and other symptoms. PMH: bronchitis, pneumonia, asthma, preeclampsia, gestational diabetes, and morbid obesity. PSH: , tonsillectomy, appendectomy, tympanostomy tubes Family history: Lung cancer in father, mother has pacemaker and due to CKD, sister also from kidney failure. Personal history: Lives with family. Denies smoking alcohol and other drug Allergies: No known allergies Patient seen and examined at the bedside. Patient reported improvement in her symptoms since admission. Objective vital signs Vital Sign Date Time Temp Pulse Resp B/P (MAP) Pulse Ox O2 Delivery O2 Flow Rate FiO2 09/24/24 11:28 85 20 100 09/24/24 11:21 Room Air 0.0 09/24/24 11:21 21 09/24/24 09:00 97.9 126/84 (98) 97.9 Total Intake and Output 09/23/24 09/23/24 09/24/24 15:00 23:00 07:00 Intake Total 300 ml 800 ml Balance 300 ml 800 ml medications Current Medications Medications Dose Ordered Sig/[place] Route Start Time Stop Time Status Last Admin Dose Admin Acetaminophen/ Hydrocodone Bitart 1 tab Q4HP PRN PO 09/23/24 09:15 09/23/24 14:44 1 TAB Ondansetron HCl 4 mg Q4HP PRN IV 09/23/24 09:15 Acetaminophen 650 mg Q6HP PRN PO 09/23/24 09:15 09/23/24 16:32 650 MG Morphine Sulfate 2 mg Q4HPRN PRN IV 09/23/24 09:15 Nitroglycerin 0.4 mg Q5MINP PRN SL 09/23/24 09:15 Morphine Sulfate 2 mg Q30M PRN IV 09/23/24 09:15 Ceftriaxone Sodium 50 ml @ 100 mls/hr DAILY@09 IV 09/24/24 09:00 09/24/24 08:44 100 MLS/HR Albuterol 2.5 mg Q6HWA NEB 09/23/24 12:00 09/24/24 11:20 2.5 MG Albuterol 2.5 mg Q2HPRN PRN NEB 09/23/24 09:15 Ipratropium [place] 0.5 mg Q6HWA NEB 09/23/24 12:00 09/24/24 11:20 0.5 MG Ipratropium [place] 0.5 mg Q2HPRN PRN NEB 09/23/24 09:15 Examination Pt is lying on bed General Appearance: Alert, Oriented X3, Cooperative, Not in acute distress HEENT: Atraumatic, Mucous membranes moist/pink Respiratory: Clear to auscultation, Normal air movement, No added sounds Cardiovascular: Regular rate, Normal S1, Normal S2, No murmurs Abdominal: Active bowel sounds, Soft, no distention, no tenderness Extremities: No edema, Normal pulses, No tenderness/swelling Skin: No Significant rash, except past surgical scars Neuro: Normal speech, sensorimotor deficits none Psych/Mental Status: Mental status NL, Mood NL Nurse was there as sharperone during examination laboratory and microbiology Laboratory Tests 09/24/24 04:39 Test 09/24/24 04:39 Range/Units Serum Glucose 161 H 74-106 mg/dL Labs and/or images reviewed: Labs reviewed by me, Image(s) reviewed by me Problem List/Assessment/Plan Problem List/Assessment/Plan # ? Sepsis from PNA # Acute G+/- Bact PNA # Acute bronchitis # Noncardiac chest pain, pleuritic in nature # Chest pain ruled out ACS # ? asthma exacerbation - breathing treatments - Rocephin - respiratory cultures along with pancultures - CXR showed congestion - troponins x3 were negative and EKG showed normal sinus rhythm without ST changes # ruled out CHF # ruled out respiratory failure # morbid obesity with a BMI 58.4 - nutritional counseling Protonix not indicated Lovenox not indicated Regular diet Goals of care discussed with the patient for more than 27 minutes: Full code status Case discussed with Dr. Garcia, patient and nurse Plan discussed with: Patient My Orders My Orders Orders - NIRU BRASWELL Procedure Category Date Status Time Transfer Orders XFER 09/24/24 Transmitted 12:03 Blood Culture RIRI 09/24/24 Logged 14:35 Respiratory Culture RIRI 09/24/24 Logged W/ Gs 14:35 Urine Bacterial RIRI 09/24/24 Logged Culture 14:35 Date of Service: Sep 24, 2024 Billing Provider: FIDEL ESPINOZA MD Common Visit Codes: [id number] INP/OBS CARE(HIGH) NIRU BRASWELL Sep 24, 2024 14:38 FIDEL ESPINOZA MD Sep 27, 2024 01:04
[2024-09-25] VITALS (14 sets, daily range): BP systolic 113–131; BP diastolic 76–83; PULSE 66–95; RESP 16–20; TEMP 97.3–98.1; O2SAT 98–100
[2024-09-25 06:17] LABS: Basophils # (auto) 0.1 10 ^3/uL (0-0.2); Basophils % (auto) 0.5 % (0.0-2.0); Eosinophils # (auto) 0.1 10 ^3/uL (0-0.8); Eosinophils % (auto) 0.9 % (0.0-7.0); Hematocrit 35.2 % (36.0-46.0); Hemoglobin 11.4 g/dL (12.2-16.2); Lymphocytes # (auto) 6.2 10 ^3/uL (0.4-5.4); Lymphocytes % (auto) 39.4 % (10.0-50.0); Mean Corpuscular Hemoglobin 25.8 pg (28.0-32.0); Mean Corpuscular Hgb Conc. 32.3 g/dL (32.0-36.0); Mean Corpuscular Volume 79.8 fL (80.0-100.0); Monocytes # (auto) 1.1 10 ^3/uL (0-1.3); Monocytes % (auto) 7.3 % (0.0-12.0); Neutrophils # (auto) 8.1 10 ^3/uL (1.6-8.6); Neutrophils % (auto) 51.9 % (37.0-80.0); Nucleated Red Blood Cells % 0.1 %; Platelet Count (auto) 428 10^3/uL (140-450); Red Blood Cells 4.41 10^6/uL (4.0-5.20); Red Cell Distribution Width 15.8 % (11.8-14.3); White Blood Cell 15.7 10^3/uL (4.4-10.8)
[2024-09-25 06:26] LABS: Anion Gap 7 (5-15); Calcium 8.8 mg/dL (8.7-10.4); Carbon Dioxide 26 mmol/L (20-31); Chloride 106 mmol/L (98-107); Sodium 139 mmol/L (136-145)
[2024-09-25 06:32] LABS: BUN/Creatinine Ratio 21.8 (10.0-20.0); Blood Urea Nitrogen 19 mg/dL (9-23); Glucose 129 mg/dL (74-106)
--- NOTE | 2024-09-25 09:33 | DVHPN2 ---
Subjective Continue to complain of chest congestion with no chest pain at this time Reviewed: Care Plan, H&P, Labs, Medications, Previous Orders, Radiology, Other (Consultation) Changes from previous H/P or p: No Changes Respiratory: Sputum Objective Vitals Vital Signs Date Time Temp Pulse Resp B/P (MAP) Pulse Ox O2 Delivery O2 Flow Rate FiO2 09/25/24 08:37 98.1 76 17 115/76 (89) 98 98.1 09/25/24 07:30 Room Air 0.0 09/25/24 07:30 21 Intake/Output Intake and Output 09/25/24 07:00 Intake Total 920 ml Balance 920 ml Intake Oral 870 ml IV Total 50 ml # Voids 5 # Bowel Movements 1 General Appearance: Alert, Oriented X3, Cooperative, No acute distress HEENT: Atraumatic Lungs: Other (Scattered wet crackles) Cardiovascular: Regular rate, Normal S1, Normal S2, No murmurs Abdomen: Normal bowel sounds, Soft, No tenderness Neuro: Normal speech, Cranial nerves 3-12 NL Psych/Mental Status: Mental status NL, Mood NL Medications Current Medications Medications Dose Ordered Sig/Marimar Route Start Time Stop Time Status Last Admin Dose Admin Acetaminophen/ Hydrocodone Bitart 1 tab Q4HP PRN PO 09/23/24 09:15 09/24/24 19:39 1 TAB Ondansetron HCl 4 mg Q4HP PRN IV 09/23/24 09:15 Acetaminophen 650 mg Q6HP PRN PO 09/23/24 09:15 09/23/24 16:32 650 MG Morphine Sulfate 2 mg Q4HPRN PRN IV 09/23/24 09:15 Nitroglycerin 0.4 mg Q5MINP PRN SL 09/23/24 09:15 Morphine Sulfate 2 mg Q30M PRN IV 09/23/24 09:15 Ceftriaxone Sodium 50 ml @ 100 mls/hr DAILY@09 IV 09/24/24 09:00 09/24/24 08:44 100 MLS/HR Albuterol 2.5 mg Q6HWA NEB 09/23/24 12:00 09/25/24 07:30 2.5 MG Albuterol 2.5 mg Q2HPRN PRN NEB 09/23/24 09:15 Ipratropium [place] 0.5 mg Q6HWA NEB 09/23/24 12:00 09/25/24 07:30 0.5 MG Ipratropium [place] 0.5 mg Q2HPRN PRN NEB 09/23/24 09:15 Laboratory Results Laboratory Tests 09/25/24 05:48 Chemistry Test 09/25/24 05:48 Calcium Level 8.8 mg/dL (8.7-10.4) Coagulation Test 09/24/24 10:09 Prothrombin Time 11.3 sec (9.3-11.8) Prothrombin Time INR 1.07 (0.9-1.15) Activated Partial Thromboplast Time 26.2 SEC (24.5-34.5) Urinalysis Test 09/23/24 15:30 Urine Color Light-yellow (Yellow) Urine Clarity Clear (Clear) Urine pH 7.0 (5.0-9.0) Urine Specific [place] 1.018 (1.001-1.035) Urine Protein Negative (Negative) Urine Ketones Negative (Negative) Urine Blood Negative /uL (Negative) Urine Nitrite Negative (Negative) Urine Bilirubin Negative (Negative) Urine Urobilinogen Normal mg/dL (Negative) Urine Leukocyte Esterase Negative /uL (Negative) Urine RBC <1 /hpf (0 - 4) Urine Microscopic WBC < 1 /HPF (0-5) Urine Squamous Epithelial Cells Few /hpf (<5) Urine Bacteria None seen /hpf (None Seen) Urine Yeast (Budding) Occasional /hpf (None Urine Glucose 2+ mg/dL (Normal) H Labs and/or images reviewed: Labs reviewed by me, Image(s) reviewed by me Assessment/Plan Assessment/Plan Covering: #Acute hypoxic respiratory failure due to asthma exacerbation secondary to acute bronchitis; continue oxygen therapy as needed; reviewed chest x-ray; ordered repeat chest x-ray with two views; continue monitoring #Asthma exacerbation due to acute bronchitis; continue IV ceftriaxone; added IV azithromycin; continue nebulizers; continue monitoring #Sepsis with leukocytosis due to acute bronchitis and UTI; reviewed blood cultures and urine culture; continue IV antibiotics as above; continue monitoring #Noncardiac/Pleuritic chest pain due to acute bronchitis; reviewed troponin, EKG, and echocardiogram along with Cardiology feedback; continue pain management as indicated; continue monitoring #History of tobacco smoking; quit three years ago; encouraged to continue absence from tobacco use; continue monitoring #Morbid obesity; counseled on the importance of adopting healthy lifestyle with diet and exercise in order to lose weight; continue monitoring Goals of care discussed with the patient for 20 minutes; full code Late Entry. This medical document was created using an electronic medical record system with computerized dictation system. Although this document has been carefully reviewed, there might still be some phonetic and typographical errors. These areas are purely typographical due to imperfections of the software programs, and do not reflect any compromise in the patient's medical care. Plan discussed with: Patient, Other (Nurse) Date of Service: Sep 25, 2024 Billing Provider: JASON KIM MD Common Visit Codes: [id number] INP/OBS CARE(HIGH) Secondary Visit Codes: [id number] CARE PLAN 30 MINUTES (20 minutes) JASON KIM MD Sep 25, 2024 09:33
[2024-09-25] MEDS: IPRATROPIUM BROM 0.5 MG/2.5ML INH SOL NEB SCH (18:57)
[2024-09-25] MEDS: ALBUTEROL SULF 2.5 MG/0.5ML(0.5%) NEB SOLN NEB SCH (18:57)
[2024-09-25] MEDS: AZITHROMYCIN 500MG/ 250ML 250 ML IV ONE (22:04)
[2024-09-26] VITALS (15 sets, daily range): BP systolic 100–143; BP diastolic 63–87; PULSE 85–100; RESP 16–20; TEMP 97.1–98.6; O2SAT 94–100
[2024-09-26 05:35] LABS: Basophils # (auto) 0.2 10 ^3/uL (0-0.2); Eosinophils # (auto) 0.2 10 ^3/uL (0-0.8); Eosinophils % (auto) 1.2 % (0.0-7.0); Hematocrit 37.1 % (36.0-46.0); Hemoglobin 11.9 g/dL (12.2-16.2); Lymphocytes # (auto) 4.4 10 ^3/uL (0.4-5.4); Lymphocytes % (auto) 26.8 % (10.0-50.0); Mean Corpuscular Hemoglobin 25.5 pg (28.0-32.0); Mean Corpuscular Volume 79.6 fL (80.0-100.0); Monocytes # (auto) 0.9 10 ^3/uL (0-1.3); Monocytes % (auto) 5.7 % (0.0-12.0); Neutrophils # (auto) 10.7 10 ^3/uL (1.6-8.6); Neutrophils % (auto) 65.3 % (37.0-80.0); Platelet Count (auto) 436 10^3/uL (140-450); Red Blood Cells 4.66 10^6/uL (4.0-5.20); Red Cell Distribution Width 16.3 % (11.8-14.3); White Blood Cell 16.3 10^3/uL (4.4-10.8)
[2024-09-26 05:42] LABS: Chloride 103 mmol/L (98-107); Potassium 3.9 mmol/L (3.5-5.1); Sodium 138 mmol/L (136-145)
[2024-09-26 05:44] LABS: Anion Gap 10 (5-15); Calcium 8.9 mg/dL (8.7-10.4); Carbon Dioxide 25 mmol/L (20-31)
[2024-09-26 05:49] LABS: BUN/Creatinine Ratio 16.9 (10.0-20.0); Blood Urea Nitrogen 13 mg/dL (9-23)
[2024-09-26 05:50] LABS: Glucose 122 mg/dL (74-106)
--- NOTE | 2024-09-26 07:53 | DVH ---
XY CHEST XRAY 1 VIEW, HISTORY: Chest congestion. Thank You! COMPARISON: XY CHEST PORTABLE on DOS: 09/23/24 XY CHEST PORTABLE on DOS: 09/23/24 TECHNICAL DATA: 1 view of the chest was obtained. FINDINGS: Lines and tubes: None Cardiomediastinal silhouette: normal Pulmonary vasculature: Prominent Lung expansion: normal Lung airspace: normal Lung interstitium: normal Pleura: normal Pneumothorax: no Bones: Unremarkable Other: no IMPRESSION: Pulmonary vascular congestion
[2024-09-26] MEDS: AZITHROMYCIN 500MG/ 250ML 250 ML IV SCH (09:40)
--- NOTE | 2024-09-26 11:19 | DVHPNRES ---
Progress Note Date Seen: Sep 26, 2024 Resident Creating Document: NIRU BRASWELL RESIDENT Medical Necessity Reason Pt with a Central, PICC or Fol: No Subjective Review of Systems Leanne Mccoy is a 34-year-old female who presented to the emergency room via EMS with a chief complaint of chest pain. Patient seen and examined at the bedside. Patient reported improvement in her symptoms, reported she feels much better but no new complaints. Patient reports: No new complaints, Feels better Objective vital signs Vital Sign Date Time Temp Pulse Resp B/P (MAP) Pulse Ox O2 Delivery O2 Flow Rate FiO2 09/26/24 11:08 85 18 100 09/26/24 11:02 Room Air* 0 21 09/26/24 09:00 97.1 124/77 (93) 97.1 Total Intake and Output 09/25/24 09/25/24 09/26/24 15:00 23:00 07:00 Intake Total 50 ml 600 ml 1050 ml Balance 50 ml 600 ml 1050 ml medications Current Medications Medications Dose Ordered Sig/[place]imar Route Start Time Stop Time Status Last Admin Dose Admin Acetaminophen/ Hydrocodone Bitart 1 tab Q4HP PRN PO 09/23/24 09:15 09/24/24 19:39 1 TAB Ondansetron HCl 4 mg Q4HP PRN IV 09/23/24 09:15 Acetaminophen 650 mg Q6HP PRN PO 09/23/24 09:15 09/23/24 16:32 650 MG Morphine Sulfate 2 mg Q4HPRN PRN IV 09/23/24 09:15 Nitroglycerin 0.4 mg Q5MINP PRN SL 09/23/24 09:15 Morphine Sulfate 2 mg Q30M PRN IV 09/23/24 09:15 Ceftriaxone Sodium 50 ml @ 100 mls/hr DAILY@09 IV 09/24/24 09:00 09/26/24 08:23 100 MLS/HR Albuterol 2.5 mg Q2HPRN PRN NEB 09/23/24 09:15 Ipratropium [place] 0.5 mg Q2HPRN PRN NEB 09/23/24 09:15 Albuterol 2.5 mg Q4HR NEB 09/25/24 18:00 09/26/24 11:02 2.5 MG Ipratropium [place] 0.5 mg Q4HR NEB 09/25/24 18:00 09/26/24 11:02 0.5 MG Azithromycin 250 ml @ 125 mls/hr DAILY IV 09/26/24 10:00 Examination Pt is lying on bed General Appearance: Alert, Oriented X3, Cooperative, Not in acute distress HEENT: Atraumatic, Mucous membranes moist/pink Respiratory: Clear to auscultation, Normal air movement, No added sounds Cardiovascular: Regular rate, Normal S1, Normal S2, No murmurs Abdominal: Active bowel sounds, Soft, no distention, no tenderness Extremities: No edema, Normal pulses, No tenderness/swelling Skin: No Significant rash, except past surgical scars Neuro: Normal speech, sensorimotor deficits none Psych/Mental Status: Mental status NL, Mood NL Nurse was there as Service Dog Trainer during examination laboratory and microbiology Laboratory Tests 09/26/24 05:00 Test 09/26/24 05:00 Range/Units Serum Glucose 122 H 74-106 mg/dL Microbiology Date/Time Source Procedure Growth Status 09/24/24 15:44 Blood Blood Culture - Preliminary NO GROWTH AFTER 24 HOURS OF INCUBATION. Resulted 09/24/24 00:00 Voided Urine Urine Culture - Final Complete Labs and/or images reviewed: Labs reviewed by me, Image(s) reviewed by me Problem List/Assessment/Plan Problem List/Assessment/Plan # Sepsis from PNA; leukocytosis worsening # ? Acute G+/- Bact PNA # Acute bronchitis # Noncardiac chest pain, pleuritic in nature # Chest pain ruled out ACS # ? asthma exacerbation from bronchitis - continues breathing treatments - Rocephin and azithromycin - respiratory cultures along with pancultures - repeat CXR showed congestion but BNP and troponin were negative; evaluated by Cardiology; echocardiogram was done - troponin x3 were negative and EKG showed normal sinus rhythm without ST changes - continue oxygen therapy as needed # ruled out CHF # ruled out respiratory failure # morbid obesity with a BMI 58.4 - nutritional counseling - counseled regarding healthy lifestyle modifications including diet and exercise Protonix is not indicated Lovenox is not indicated Regular diet Possible discharge tomorrow if leukocytosis decreasing Case discussed with Dr. Kim, patient and nurse Plan discussed with: Patient, Other (Nurse) Addendum Addendum Addendum I was physically present for the pablo portions of the service provided to patient by THE RESIDENT. I have reviewed the documentation, discussed the case with resident and agree with the resident's documentation except as noted. Also the patient's clinical case was discussed with the patient's nurse. This medical document was created using an electronic medical record system with computerized dictation system. Although this document has been carefully reviewed, there might still be some phonetic and typographical errors. These areas are purely typographical due to imperfections of the software programs, and do not reflect any compromise in the patient's medical care. Late signature. Date of Service: Sep 26, 2024 Billing Provider: JASON KIM MD Common Visit Codes: [id number] INP/OBS CARE(HIGH) NIRU BRASWELL RESIDENT Sep 26, 2024 11:18 JASON KIM MD Sep 26, 2024 14:04
[2024-09-26] MEDS ORDERED: IPRATROPIUM BROM 0.5 MG/2.5ML INH SOL NEB PRN (14:45)
[2024-09-26] MEDS ORDERED: ALBUTEROL SULF 2.5 MG/0.5ML(0.5%) NEB SOLN NEB PRN (14:45)
[2024-09-27 01:00] VITALS: BP 106/78; PULSE 94; RESP 20; TEMP 98.4; O2SAT 97
[2024-09-27 05:00] VITALS: BP 94/60; PULSE 90; RESP 20; TEMP 98.4; O2SAT 97
[2024-09-27 06:35] LABS: Basophils # (auto) 0.1 10 ^3/uL (0-0.2); Eosinophils # (auto) 0.2 10 ^3/uL (0-0.8); Hemoglobin 12.6 g/dL (12.2-16.2); Lymphocytes % (auto) 34.5 % (10.0-50.0); Mean Corpuscular Hemoglobin 25.9 pg (28.0-32.0)
[2024-09-27 06:40] LABS: Basophils % (auto) 0.7 % (0.0-2.0); Eosinophils % (auto) 1.9 % (0.0-7.0); Hematocrit 38.3 % (36.0-46.0); Lymphocytes # (auto) 4.5 10 ^3/uL (0.4-5.4); Mean Corpuscular Hgb Conc. 32.9 g/dL (32.0-36.0); Mean Corpuscular Volume 78.6 fL (80.0-100.0); Monocytes # (auto) 0.8 10 ^3/uL (0-1.3); Monocytes % (auto) 6.3 % (0.0-12.0); Neutrophils # (auto) 7.3 10 ^3/uL (1.6-8.6); Neutrophils % (auto) 56.6 % (37.0-80.0); Nucleated Red Blood Cells % 0.1 %; Platelet Count (auto) 482 10^3/uL (140-450); Red Blood Cells 4.87 10^6/uL (4.0-5.20); Red Cell Distribution Width 15.9 % (11.8-14.3)
[2024-09-27 09:00] VITALS: BP 113/78; PULSE 73; RESP 18; TEMP 98; O2SAT 98
[2024-09-27 10:00] VITALS: O2SAT 98
[2024-09-27] MEDS ORDERED: AZIT-185 PO (10:23)
[2024-09-27 11:37] VITALS: TEMP 36.9
--- NOTE | 2024-09-27 12:14 | DVHDSRES ---
Discharge Summary Date of Admission Resident Creating Document: NIRU BRASWELL RESIDENT Sep 23, 2024 at 09:12 Date of Discharge: Sep 27, 2024 Admitting Diagnosis Chest pain Labs/Diagnostic Data: Laboratory Results Test 09/27/24 05:10 09/26/24 05:00 09/25/24 05:48 09/24/24 15:44 White Blood Count 13.0 10^3/uL (4.4-10.8) Red Blood Count 4.87 10^6/uL (4.0-5.20) Hemoglobin 12.6 g/dL (12.2-16.2) Hematocrit 38.3 % (36.0-46.0) Mean Corpuscular Volume 78.6 fL (80.0-100.0) Mean Corpuscular Hemoglobin 25.9 pg (28.0-32.0) Mean Corpuscular Hemoglobin Concent 32.9 g/dL (32.0-36.0) Red Cell Distribution Width 15.9 % (11.8-14.3) Platelet Count 482 10^3/uL (140-450) Mean Platelet Volume 8.3 fL (6.9-10.8) Neutrophils (%) (Auto) 56.6 % (37.0-80.0) Lymphocytes (%) (Auto) 34.5 % (10.0-50.0) Monocytes (%) (Auto) 6.3 % (0.0-12.0) Eosinophils (%) (Auto) 1.9 % (0.0-7.0) Basophils (%) (Auto) 0.7 % (0.0-2.0) Neutrophils # (Auto) 7.3 10 ^3/uL (1.6-8.6) Lymphocytes # (Auto) 4.5 10 ^3/uL (0.4-5.4) Monocytes # (Auto) 0.8 10 ^3/uL (0-1.3) Eosinophils # (Auto) 0.2 10 ^3/uL (0-0.8) Basophils # (Auto) 0.1 10 ^3/uL (0-0.2) Nucleated Red Blood Cells 0.1 % Sodium Level 138 mmol/L (136-145) Potassium Level 3.9 mmol/L (3.5-5.1) Chloride Level 103 mmol/L (98-107) Carbon Dioxide Level 25 mmol/L (20-31) Anion Gap 10 (5-15) Blood Urea Nitrogen 13 mg/dL (9-23) Creatinine 0.77 mg/dL (0.550-1.02) Glomerular Filtration Rate Calc 105 mL/min (>90) BUN/Creatinine Ratio 16.9 (10.0-20.0) Serum Glucose 122 mg/dL (74-106) Calcium Level 8.9 mg/dL (8.7-10.4) Beta HCG, Quantitative 1.4 mIU/mL (1.5-4.2) Lactic Acid Level 2.0 mmol/L (0.4-2.0) Test 09/24/24 10:09 09/24/24 04:39 09/23/24 15:30 09/23/24 10:20 Prothrombin Time 11.3 sec (9.3-11.8) Prothrombin Time INR 1.07 (0.9-1.15) Activated Partial Thromboplast Time 26.2 SEC (24.5-34.5) Hemoglobin A1c 6.3 % A1C (<5.7) Total Bilirubin 0.2 mg/dL (0.2-1.0) Aspartate Amino Transferase (AST) 17 U/L (13-40) Alanine Aminotransferase (ALT) 15 U/L (7-40) Alkaline Phosphatase 87 U/L (46-116) Total Protein 7.3 g/dL (5.7-8.2) Albumin 4.2 g/dL (3.2-4.8) Urine Color Light-yellow (Yellow) Urine Clarity Clear (Clear) Urine pH 7.0 (5.0-9.0) Urine Specific [place] 1.018 (1.001-1.035) Urine Protein Negative (Negative) Urine Ketones Negative (Negative) Urine Blood Negative /uL (Negative) Urine Nitrite Negative (Negative) Urine Bilirubin Negative (Negative) Urine Urobilinogen Normal mg/dL (Negative) Urine Leukocyte Esterase Negative /uL (Negative) Urine RBC <1 /hpf (0 - 4) Urine Microscopic WBC < 1 /HPF (0-5) Urine Squamous Epithelial Cells Few /hpf (<5) Urine Bacteria None seen /hpf (None Seen) Urine Yeast (Budding) Occasional /hpf (None Urine Glucose 2+ mg/dL (Normal) Urine Opiates Screen Neg (NEGATIVE) Urine Fentanyl Screen Neg (NEGATIVE) Urine Barbiturates Screen Neg (NEGATIVE) Urine Phencyclidine Screen Neg (NEGATIVE) Urine Amphetamines Screen Neg (NEGATIVE) Urine Benzodiazepines Screen Neg (NEGATIVE) Urine Cocaine Screen Neg (NEGATIVE) Urine Cannabinoids Screen Neg (NEGATIVE) Troponin I High Sensitivity < 3 ng/L (</=34) Test 09/23/24 10:19 09/23/24 07:30 Influenza Type A Antigen Negative (Negative) Influenza Type B Antigen Negative (Negative) SARS-CoV-2 Antigen (Rapid) Negative (NEGATIVE) Phosphorus Level 3.0 mg/dL (2.4-5.1) Magnesium Level 1.9 mg/dL (1.6-2.6) B-Type Natriuretic Peptide 9.54 pg/mL (0-100) Triglycerides Level 115 mg/dL (< 150) Cholesterol Level 150 mg/dL (< 200) LDL Cholesterol 90 mg/dL (< 100) HDL Cholesterol 47 mg/dL (40-59) Thyroid Stimulating Hormone (TSH) 3.94 uIU/mL (0.55-4.78) Other Laboratory Tests 09/27/24 05:10 09/26/24 05:00 Brief Hx & Hospital Course: Leanne Mccoy is a 34-year-old female who presented to the emergency room via EMS with a chief complaint of chest pain. She received a breathing treatment en route to the hospital. Describes the chest pain as substernal, nonradiating, tightness like, associated with a cough with yellow sputum/LOPEZ, and worse with movement/inspiration/cough. States she attended our urgent care clinic this past Friday where she received a steroid and breathing treatment and sent home on ABX and albuterol therapy. She returned again two days ago given worsening symptoms. On my assessment patient denies fever, nausea, vomiting, difficulty breathing, sick contacts and other symptoms. Patient required hospital admission for further evaluation and management of chest pain. Troponins x3 were negative and EKG showed normal sinus rhythm without ST changes. CXR showed congestion. Patient was diagnosed with asthma exacerbation due to pneumonia and acute bronchitis , started on Rocephin and ordered pancultures, preliminary results negative. Patient was started on Rocephin. patient was given breathing treatments along with Solu-Medrol. Patient condition was improved , hemodynamically stable and in condition to discharged home with optimal medical treatment. Patient was advised about healthy lifestyle modifications including diet and exercise and to follow up with PCP. Pt is lying on bed General Appearance: Alert, Oriented X3, Cooperative, Not in acute distress HEENT: Atraumatic, Mucous membranes moist/pink Respiratory: Clear to auscultation, Normal air movement, No added sounds Cardiovascular: Regular rate, Normal S1, Normal S2, No murmurs Abdominal: Active bowel sounds, Soft, no distention, no tenderness Extremities: No edema, Normal pulses, No tenderness/swelling Skin: No Significant rash, except past surgical scars Neuro: Normal speech, sensorimotor deficits none Psych/Mental Status: Mental status NL, Mood NL Nurse was there as sharperone during examination Operations or Procedures XY CHEST XRAY 1 VIEW, IMPRESSION: Pulmonary vascular congestion Condition at Discharge: Stable Final Diagnosis/Problems List # Sepsis from PNA # ? Acute G+/- Bact PNA # Acute bronchitis # Noncardiac chest pain, pleuritic in nature # Chest pain ruled out ACS # ? asthma exacerbation from bronchitis # ruled out CHF # ruled out respiratory failure # morbid obesity with a BMI 58.4 Discharge Disposition: Home Discharge Instruct/Medications Diet: Regular Activity: No Restrictions, As Tolerated Follow Up/Referral: PCP Medications: Zithromax for 5 days Discharge Statement: "Patient was advised to return to the ER or call 911 if any headaches, dizziness, shortness of breath, chest pain, abdominal pain, bleeding, fevers, or worsening of medical condition. Patient was counseled about treatment plan, medications, possible side effects, patientverbalized understanding. All questions were answered to the best of my ability. This discharge took greater then 30 minutes in planning, reviewing documentation, counseling the patient, and discussing with other team members." ASSESSMENT ASSESSMENT Assessment Asthma exacerbation due to Acute bronchitis Date of Service: Sep 27, 2024 Billing Provider: FIDEL ESPINOZA MD Common Visit Codes: 20037-CCI/OBS DISCH DAY >30min NIRU BRASWELL Sep 27, 2024 12:14 FIDEL ESPINOZA MD Sep 28, 2024 09:55
[2024-09-27 13:00] VITALS: BP 128/86; PULSE 79; RESP 18; TEMP 98.2; O2SAT 98
== END 2024-09-27 13:41 | disposition home or self-care (01) | DRG 720 ==
LOC: EDBD 06:19 → ER 06:19 → OVERFLOW 09:12 → EEVIPCON 09:12 → TELE-WESTW 14:21 → WEST WING 09-24 12:57 → EAST 09-25 01:52
PROVIDERS: ADMIT Internal Medicine; ATTEND Internal Medicine
DX: A41.50 Gram-negative sepsis, unspecified (principal); J15.69 Pneumonia due to other Gram-negative bacteria; J15.9 Unspecified bacterial pneumonia; J45.41 Moderate persistent asthma with (acute) exacerbation; Z68.43 Body mass index [BMI] 50.0-59.9, adult; Z20.822 Contact with and (suspected) exposure to COVID-19; E66.01 Morbid (severe) obesity due to excess calories; N39.0 Urinary tract infection, site not specified; J20.9 Acute bronchitis, unspecified; R07.89 Other chest pain; I10 Essential (primary) hypertension; Z80.1 Family history of malignant neoplasm of trachea, bronchus and lung; Z98.891 History of uterine scar from previous surgery; Z86.32 Personal history of gestational diabetes; Z82.69 Family history of other diseases of the musculoskeletal system and connective tissue; Z79.899 Other long term (current) drug therapy; Z82.49 Family history of ischemic heart disease and other diseases of the circulatory system; Z87.891 Personal history of nicotine dependence
CPT/HCPCS: 36415; 71045; 80048; 80053; 80061; 80307; 81001; 83036; 83605; 83735; 83880; 84100; 84443; 84484; 84702; 85025; 85610; 85730; 87040; 87086; 87426; 87804; 93005; 93306; 94640; 96365; 96375; 99291; G0378